=== PATIENT | male | born 1970 | race Caucasian/White ===

== ENCOUNTER 2020-08-23 18:07 | Emergency (ER) | payer OTHER ==
[~2020-08-23] VITALS: Ht 185.4 cm; Wt 79.4 kg
[2020-08-23 18:21] VITALS: BP_SYST 125
[2020-08-23] MEDS ORDERED: LIDOCAINE 1% 10 MG/ML, 20 ML MDV INJ ONE (18:30)
[2020-08-23] MEDS ORDERED: BACITRACIN 1 GM OINT TP ONE (18:30)
[2020-08-23 19:07] VITALS: BP_SYST 125
== END 2020-08-23 19:05 | disposition home or self-care (01) ==
LOC: SED 18:07
DX: S61.217A Laceration without foreign body of left little finger without damage to nail, initial encounter (principal); F17.200 Nicotine dependence, unspecified, uncomplicated; Z88.6 Allergy status to analgesic agent; W26.0XXA Contact with knife, initial encounter; Y93.89 Activity, other specified; Y92.89 Other specified places as the place of occurrence of the external cause; Y99.8 Other external cause status
CPT/HCPCS: 12001; 99282; J2001